=== PATIENT | male | born 1950 ===

== ENCOUNTER 2023-08-21 17:21 | Inpatient (IN) | payer MEDICARE ==
[2023-08-21] MEDS ORDERED: HYDROcodone/Acetaminophen 5/325 mg Tablet PO PRN (18:19)
[2023-08-21] MEDS ORDERED: Acetaminophen 325 MG TAB PO PRN (18:19)
[2023-08-21] MEDS ORDERED: Ondansetron ODT 4 MG TAB PO PRN (18:19)
[2023-08-21] MEDS ORDERED: Acetaminophen 650 MG Suppository PR PRN (18:19)
[2023-08-21] MEDS ORDERED: Ondansetron PF 4 MG/2 ML Vial IVP PRN (18:19)
[2023-08-21] MEDS ORDERED: Morphine 4 MG/ML VIAL SLOW IVP SCH (18:30)
[2023-08-21] MEDS ORDERED: Cyclobenzaprine 10 MG TAB PO SCH (18:30)
[2023-08-21] MEDS ORDERED: Sodium Chloride 0.9% 1,000 ML IV SCH (18:30)
[2023-08-21] MEDS ORDERED: Naloxone HCl 0.4 mg/ml Vial IV PRN (18:39)
[2023-08-21] MEDS ORDERED: Morphine 2 MG/ML VIAL SLOW IVP SCH (18:45)
[2023-08-21 18:49] LABS: #Monocytes 1.1 thou/uL (0.11-0.59); #Neutrophils 12.3 thou/uL (1.40-6.50); %Basophils 0.1 % (0.0-1.0); %Monocytes 7.5 % (0.0-10.0); %Neutrophils 84.8 % (42.0-75.0); Hematocrit 31.9 % (42.0-52.0); Hemoglobin 10.6 g/dL (14.0-18.0); Mean Corpuscular HGB CONC 33.2 g/dL (32.0-36.0); Mean Corpuscular Hemoglobin 34.8 pg (27.0-31.0); Mean Corpuscular Volume 104.6 fl (78.0-98.0); Mean Platelet Volume 9.2 fL (7.4-10.4); Platelet Count 196 10x3/uL (130-400); RBC Distribution Width 12.4 % (11.5-14.5); Red Blood Cell (RBC) Count 3.05 mill/uL (4.70-6.10); White Blood Cell (WBC) Count 14.5 10x3/uL (4.8-10.8)
[2023-08-21] MEDS ORDERED: Morphine 2 MG/ML VIAL SLOW IVP PRN (19:11)
[2023-08-21 19:20] LABS: ALT (SGPT) 12 U/L (8-55); AST (SGOT) 23 U/L (5-34); Albumin 3.5 g/dL (3.4-4.8); Alcohol Less than 10.0 mg/dL (Less than 10); Alkaline Phosphatase 68 U/L (40-110); Anion Gap 18 mmol/L (10-20); BUN (Urea Nitrogen) 29 mg/dL (8.4-25.7); Bilirubin, Total 0.7 mg/dL (0.2-1.2); Calc. Creatinine Clearance 0 mL/min (70-130); Calcium 8.8 mg/dL (7.8-10.44); Carbon Dioxide 20 mmol/L (23-31); Chloride 99 mmol/L (98-107); Estimated GFR 72; Globulin 3.3 g/dL (2.4-3.5); Glucose 115 mg/dL (83-110); Magnesium 1.9 mg/dL (1.6-2.6); Potassium 3.9 mmol/L (3.5-5.1); Protein, Total 6.8 g/dL (5.8-8.1); Sodium 133 mmol/L (136-145)
[2023-08-21] MEDS: Bisacodyl 5 MG TAB PO SCH (20:24)
[2023-08-21] MEDS: Sertraline 25 MG TAB PO SCH (20:24)
[2023-08-21] MEDS: Famotidine 20 MG TAB PO SCH (20:25)
[2023-08-21] MEDS: Morphine ER 15 MG TAB PO SCH (21:56)
[2023-08-21 22:04] LABS: Lactic Acid 1.9 mmol/L (0.5-2.2)
[2023-08-21 23:13] VITALS: BMI 26.6
[2023-08-22 00:16] LABS: Bacteria/HPF None Seen HPF (None Seen); Bilirubin Negative (Negative); Blood, Urine Negative (Negative); CAUTI Indications for Culture Pelvic or flank pain; Clarity Clear (Clear); Glucose, Urine (Dipstick) Normal (Negative); Ketone, Urine Negative (Negative); Leukocyte Negative Leu/uL (Negative); Nitrite Negative (Negative); Protein, Urine (Dipstick) Negative (Neg-Trace); RBC/HPF 0-3 HPF (0-3); Specific Gravity, Urine 1.012 (1.002-1.036); Squamous Epithelial None Seen HPF (0-3); Urobilinogen Normal mg/dL (Less than 2); WBC/HPF 0-3 HPF (0-3)
[2023-08-22 00:21] LABS: Urine Culture Reflex No No
[2023-08-22] MEDS ORDERED: Sodium Chloride 0.9% 500 ML IV SCH ×2 (02:15→03:00)
[2023-08-22 06:18] LABS: #Eosinphils 0.1 thou/uL (0.0-0.7); #Monocytes 0.7 thou/uL (0.11-0.59); #Neutrophils 4.9 thou/uL (1.40-6.50); %Basophils 0.1 % (0.0-1.0); %Lymphocytes 26.1 % (21.0-51.0); %Monocytes 9.3 % (0.0-10.0); %Neutrophils 63.4 % (42.0-75.0); Hematocrit 32.9 % (42.0-52.0); Mean Corpuscular HGB CONC 33.4 g/dL (32.0-36.0); Mean Corpuscular Hemoglobin 34.6 pg (27.0-31.0); Mean Corpuscular Volume 103.5 fl (78.0-98.0); Mean Platelet Volume 9.3 fL (7.4-10.4); Platelet Count 204 10x3/uL (130-400); RBC Distribution Width 12.4 % (11.5-14.5); Red Blood Cell (RBC) Count 3.18 mill/uL (4.70-6.10); White Blood Cell (WBC) Count 7.7 10x3/uL (4.8-10.8)
[2023-08-22 06:47] LABS: Anion Gap 18 mmol/L (10-20); BUN (Urea Nitrogen) 20 mg/dL (8.4-25.7); Calc. Creatinine Clearance 85 mL/min (70-130); Calcium 8.8 mg/dL (7.8-10.44); Carbon Dioxide 22 mmol/L (23-31); Chloride 104 mmol/L (98-107); Estimated GFR 92; Glucose 98 mg/dL (83-110); Potassium 3.7 mmol/L (3.5-5.1); Sodium 140 mmol/L (136-145)
[2023-08-22] MEDS: Naloxegol 12.5 MG TAB PO SCH (08:07)
[2023-08-22] MEDS: Polyethylene Glycol 3350 17 GM Packet PO SCH ×2 (08:07→22:02)
[2023-08-22] MEDS: Bisacodyl 5 MG TAB PO SCH ×2 (08:07→22:02)
[2023-08-22] MEDS: Cyanocobalamin (Vitamin B-12) 1,000 MCG TAB PO SCH (08:08)
[2023-08-22] MEDS: Famotidine 20 MG TAB PO SCH ×2 (08:08→22:05)
[2023-08-22] MEDS: Morphine ER 15 MG TAB PO SCH ×2 (08:08→22:00)
[2023-08-22] MEDS: Calcium Carbonate 600 MG + Vit D TAB PO SCH (08:08)
[2023-08-22] MEDS ORDERED: Dexamethasone 10 MG/ML VIAL SLOW IVP SCH (09:45)
[2023-08-22] MEDS ORDERED: Dexamethasone 10 MG in Sodium Chloride 0.9% 50 ML IVPB SCH (09:45)
[2023-08-22] MEDS: Sodium Chloride 0.9% 1,000 ML IV SCH (12:08)
[2023-08-22] MEDS ORDERED: HYDROcodone/Acetaminophen 10/325 mg Tablet PO PRN (14:16)
[2023-08-22] MEDS: HYDROcodone/Acetaminophen 10/325 mg Tablet PO PRN (14:30)
[2023-08-22] MEDS: Calcitonin,Salmon,Synthetic 200 Units NASAL PUMP 3.7 ML L NARE SCH (17:22)
[2023-08-22] MEDS: Sertraline 25 MG TAB PO SCH (22:01)
[2023-08-23] MEDS: HYDROcodone/Acetaminophen 10/325 mg Tablet PO PRN ×3 (00:23→20:20)
[2023-08-23] MEDS: Sodium Chloride 0.9% 1,000 ML IV SCH ×2 (00:25→14:50)
[2023-08-23] MEDS: Naloxegol 12.5 MG TAB PO SCH (07:29)
[2023-08-23] MEDS ORDERED: Morphine 2 MG/ML VIAL SLOW IVP PRN (08:00)
[2023-08-23] MEDS ORDERED: Fentanyl 100 MCG/2 ML VIAL SLOW IVP SCH (08:00)
[2023-08-23] MEDS ORDERED: fentaNYL 50 mcg/mL 1 mL Vial SLOW IVP SCH (08:30)
[2023-08-23] MEDS: Calcium Carbonate 600 MG + Vit D TAB PO SCH (08:37)
[2023-08-23] MEDS: Cyanocobalamin (Vitamin B-12) 1,000 MCG TAB PO SCH (08:37)
[2023-08-23] MEDS: Bisacodyl 5 MG TAB PO SCH ×2 (08:37→22:01)
[2023-08-23] MEDS: Famotidine 20 MG TAB PO SCH ×2 (08:37→20:22)
[2023-08-23] MEDS: Polyethylene Glycol 3350 17 GM Packet PO SCH ×2 (08:38→20:32)
[2023-08-23] MEDS: Morphine ER 15 MG TAB PO SCH ×2 (09:43→21:18)
[2023-08-23] MEDS: Morphine 4 MG/ML VIAL SLOW IVP PRN ×3 (12:16→23:28)
[2023-08-23] MEDS ORDERED: Dexamethasone 4 mg/ml Vial SLOW IVP SCH (14:30)
[2023-08-23] MEDS ORDERED: CEFAZOLIN 2 GM in Sodium Chloride 0.9% 100 ML IVPB SCH (15:45)
[2023-08-23] MEDS: Calcitonin,Salmon,Synthetic 200 Units NASAL PUMP 3.7 ML R NARE SCH (18:10)
[2023-08-23] MEDS: Sertraline 25 MG TAB PO SCH (20:21)
[2023-08-23] MEDS: Senokot S 8.6-50 MG TAB PO SCH (20:22)
[2023-08-23] MEDS: Dexamethasone 4 mg/ml Vial SLOW IVP SCH (21:19)
[2023-08-24] MEDS: HYDROcodone/Acetaminophen 10/325 mg Tablet PO PRN ×2 (00:40→20:56)
[2023-08-24] MEDS: Sodium Chloride 0.9% 1,000 ML IV SCH ×2 (04:11→21:02)
[2023-08-24 05:32] LABS: #Monocytes 0.7 thou/uL (0.11-0.59); #Neutrophils 6.5 thou/uL (1.40-6.50); %Basophils 0.1 % (0.0-1.0); %Lymphocytes 11.3 % (21.0-51.0); %Neutrophils 79.2 % (42.0-75.0); Hematocrit 27.8 % (42.0-52.0); Hemoglobin 9.4 g/dL (14.0-18.0); Mean Corpuscular HGB CONC 33.8 g/dL (32.0-36.0); Mean Corpuscular Hemoglobin 34.6 pg (27.0-31.0); Mean Corpuscular Volume 102.2 fl (78.0-98.0); Mean Platelet Volume 9.4 fL (7.4-10.4); Platelet Count 191 10x3/uL (130-400); Red Blood Cell (RBC) Count 2.72 mill/uL (4.70-6.10); White Blood Cell (WBC) Count 8.2 10x3/uL (4.8-10.8)
[2023-08-24] MEDS: Dexamethasone 4 mg/ml Vial SLOW IVP SCH ×3 (05:51→20:58)
[2023-08-24 06:00] LABS: ALT (SGPT) 13 U/L (8-55); AST (SGOT) 22 U/L (5-34); Albumin 3.1 g/dL (3.4-4.8); Alkaline Phosphatase 65 U/L (40-110); Anion Gap 11 mmol/L (10-20); BUN (Urea Nitrogen) 12 mg/dL (8.4-25.7); Bilirubin, Total 0.4 mg/dL (0.2-1.2); Calc. Creatinine Clearance 98 mL/min (70-130); Calcium 8.6 mg/dL (7.8-10.44); Carbon Dioxide 24 mmol/L (23-31); Chloride 103 mmol/L (98-107); Estimated GFR 96; Globulin 2.7 g/dL (2.4-3.5); Glucose 141 mg/dL (83-110); Potassium 4.1 mmol/L (3.5-5.1); Protein, Total 5.8 g/dL (5.8-8.1); Sodium 134 mmol/L (136-145)
[2023-08-24] MEDS ORDERED: Ondansetron PF 4 MG/2 ML Vial ONE ×2 (08:50→09:41)
[2023-08-24] MEDS ORDERED: PROPOFOL 20 ML ONE (08:50)
[2023-08-24] MEDS ORDERED: Sodium Chloride 0.9% 100 ML ONE (08:53)
[2023-08-24] MEDS ORDERED: CEFAZOLIN 2 GM VIAL ONE (08:53)
[2023-08-24] MEDS ORDERED: ePHEDrine Sulfate 50 MG/10 ML VIAL ONE (09:41)
[2023-08-24] MEDS ORDERED: PROPOFOL 200 MG/20 ML VIAL ONE (09:41)
[2023-08-24] MEDS ORDERED: fentaNYL PF 100 MCG/2 ML SYRINGE ONE (09:50)
[2023-08-24] MEDS ORDERED: fentaNYL 50 mcg/mL 1 mL Vial ONE ×3 (09:54→11:40)
[2023-08-24] MEDS: Thiamine 100 MG TAB PO SCH (10:28)
[2023-08-24] MEDS: Polyethylene Glycol 3350 17 GM Packet PO SCH ×2 (10:28→20:56)
[2023-08-24] MEDS: Famotidine 20 MG TAB PO SCH ×2 (10:28→20:57)
[2023-08-24] MEDS: Senokot S 8.6-50 MG TAB PO SCH ×2 (10:28→20:58)
[2023-08-24] MEDS: Naloxegol 12.5 MG TAB PO SCH (10:29)
[2023-08-24] MEDS: Bisacodyl 5 MG TAB PO SCH ×2 (10:29→20:55)
[2023-08-24] MEDS: Cyanocobalamin (Vitamin B-12) 1,000 MCG TAB PO SCH (10:29)
[2023-08-24] MEDS ORDERED: Promethazine HCl 25 MG/ML VIAL IM PRN (11:02)
[2023-08-24] MEDS ORDERED: Ondansetron HCl/PF 4 MG/2 ML Vial IVP PRN (11:02)
[2023-08-24] MEDS ORDERED: HYDROmorphone 2 MG/ML VIAL SLOW IVP PRN (11:02)
[2023-08-24] MEDS: Morphine ER 15 MG TAB PO SCH ×2 (12:59→20:55)
[2023-08-24] MEDS: CEFAZOLIN 2 GM in Sodium Chloride 0.9% 100 ML IVPB SCH (16:39)
[2023-08-24] MEDS: Calcitonin,Salmon,Synthetic 200 Units NASAL PUMP 3.7 ML R NARE SCH (16:40)
[2023-08-24] MEDS: Calcitonin,Salmon,Synthetic 200 Units NASAL PUMP 3.7 ML L NARE SCH (18:34)
[2023-08-24] MEDS: Sertraline 25 MG TAB PO SCH (20:57)
[2023-08-25] MEDS: CEFAZOLIN 2 GM in Sodium Chloride 0.9% 100 ML IVPB SCH (01:15)
[2023-08-25 05:16] LABS: #Monocytes 0.8 thou/uL (0.11-0.59); #Neutrophils 6.7 thou/uL (1.40-6.50); %Basophils 0.1 % (0.0-1.0); %Eosinophils 0.1 % (0.0-10.0); %Lymphocytes 13.6 % (21.0-51.0); %Monocytes 9.5 % (0.0-10.0); %Neutrophils 76.4 % (42.0-75.0); Hematocrit 23.5 % (42.0-52.0); Hemoglobin 8.1 g/dL (14.0-18.0); Mean Corpuscular HGB CONC 34.5 g/dL (32.0-36.0); Mean Corpuscular Hemoglobin 35.7 pg (27.0-31.0); Mean Corpuscular Volume 103.5 fl (78.0-98.0); Mean Platelet Volume 9.6 fL (7.4-10.4); Platelet Count 181 10x3/uL (130-400); RBC Distribution Width 12.1 % (11.5-14.5); Red Blood Cell (RBC) Count 2.27 mill/uL (4.70-6.10); White Blood Cell (WBC) Count 8.8 10x3/uL (4.8-10.8)
[2023-08-25 05:42] LABS: ALT (SGPT) 13 U/L (8-55); AST (SGOT) 24 U/L (5-34); Albumin 2.7 g/dL (3.4-4.8); Alkaline Phosphatase 56 U/L (40-110); Anion Gap 13 mmol/L (10-20); BUN (Urea Nitrogen) 13 mg/dL (8.4-25.7); Bilirubin, Total 0.4 mg/dL (0.2-1.2); Calc. Creatinine Clearance 88 mL/min (70-130); Carbon Dioxide 24 mmol/L (23-31); Chloride 104 mmol/L (98-107); Estimated GFR 93; Globulin 2.6 g/dL (2.4-3.5); Glucose 137 mg/dL (83-110); Potassium 4.2 mmol/L (3.5-5.1); Protein, Total 5.3 g/dL (5.8-8.1); Sodium 137 mmol/L (136-145)
[2023-08-25] MEDS: Dexamethasone 4 mg/ml Vial SLOW IVP SCH ×3 (05:46→21:24)
[2023-08-25] MEDS: Famotidine 20 MG TAB PO SCH ×2 (08:09→21:25)
[2023-08-25] MEDS: Polyethylene Glycol 3350 17 GM Packet PO SCH ×3 (08:09→21:23)
[2023-08-25] MEDS: Senokot S 8.6-50 MG TAB PO SCH ×2 (08:10→21:25)
[2023-08-25] MEDS: Bisacodyl 5 MG TAB PO SCH ×2 (08:10→21:25)
[2023-08-25] MEDS: Thiamine 100 MG TAB PO SCH (08:10)
[2023-08-25] MEDS: Cyanocobalamin (Vitamin B-12) 1,000 MCG TAB PO SCH (08:10)
[2023-08-25] MEDS: Morphine ER 15 MG TAB PO SCH ×2 (08:10→21:25)
[2023-08-25] MEDS: Naloxegol 12.5 MG TAB PO SCH (08:16)
[2023-08-25] MEDS: Sodium Chloride 0.9% 1,000 ML IV SCH ×2 (09:20→13:34)
[2023-08-25] MEDS: Sertraline 25 MG TAB PO SCH (21:25)
[2023-08-26] MEDS: Dexamethasone 4 mg/ml Vial SLOW IVP SCH ×2 (05:37→09:27)
[2023-08-26 05:48] LABS: #Neutrophils 8.7 thou/uL (1.40-6.50); %Basophils 0.1 % (0.0-1.0); %Lymphocytes 12.8 % (21.0-51.0); %Monocytes 8.7 % (0.0-10.0); Hematocrit 25.7 % (42.0-52.0); Hemoglobin 8.8 g/dL (14.0-18.0); Mean Corpuscular HGB CONC 34.2 g/dL (32.0-36.0); Mean Corpuscular Hemoglobin 34.8 pg (27.0-31.0); Mean Corpuscular Volume 101.6 fl (78.0-98.0); Mean Platelet Volume 9.6 fL (7.4-10.4); Platelet Count 214 10x3/uL (130-400); RBC Distribution Width 11.9 % (11.5-14.5); Red Blood Cell (RBC) Count 2.53 mill/uL (4.70-6.10); White Blood Cell (WBC) Count 11.1 10x3/uL (4.8-10.8)
[2023-08-26 06:19] LABS: ALT (SGPT) 15 U/L (8-55); AST (SGOT) 23 U/L (5-34); Albumin 2.8 g/dL (3.4-4.8); Alkaline Phosphatase 60 U/L (40-110); Anion Gap 14 mmol/L (10-20); BUN (Urea Nitrogen) 14 mg/dL (8.4-25.7); Bilirubin, Total 0.6 mg/dL (0.2-1.2); Calc. Creatinine Clearance 103 mL/min (70-130); Calcium 8.3 mg/dL (7.8-10.44); Carbon Dioxide 23 mmol/L (23-31); Chloride 104 mmol/L (98-107); Estimated GFR 97; Globulin 2.8 g/dL (2.4-3.5); Glucose 124 mg/dL (83-110); Potassium 4.2 mmol/L (3.5-5.1); Protein, Total 5.6 g/dL (5.8-8.1); Sodium 137 mmol/L (136-145)
[2023-08-26] MEDS: Morphine ER 15 MG TAB PO SCH ×2 (09:25→20:46)
[2023-08-26] MEDS: Bisacodyl 5 MG TAB PO SCH ×2 (09:26→20:47)
[2023-08-26] MEDS: Folic Acid 1 MG TAB PO SCH (09:26)
[2023-08-26] MEDS: Naloxegol 12.5 MG TAB PO SCH (09:26)
[2023-08-26] MEDS: Thiamine 100 MG TAB PO SCH (09:26)
[2023-08-26] MEDS: Famotidine 20 MG TAB PO SCH ×2 (09:26→20:47)
[2023-08-26] MEDS: Cyanocobalamin (Vitamin B-12) 1,000 MCG TAB PO SCH (09:26)
[2023-08-26] MEDS: Senokot S 8.6-50 MG TAB PO SCH ×2 (09:27→20:47)
[2023-08-26] MEDS: Polyethylene Glycol 3350 17 GM Packet PO SCH ×2 (09:27→20:47)
[2023-08-26] MEDS: HYDROcodone/Acetaminophen 10/325 mg Tablet PO PRN (16:53)
[2023-08-26] MEDS: Calcitonin,Salmon,Synthetic 200 Units NASAL PUMP 3.7 ML L NARE SCH (19:17)
[2023-08-26] MEDS: Sertraline 25 MG TAB PO SCH (20:47)
[2023-08-27] MEDS: Naloxegol 12.5 MG TAB PO SCH (08:58)
[2023-08-27] MEDS: Famotidine 20 MG TAB PO SCH ×2 (08:58→21:28)
[2023-08-27] MEDS: Cyanocobalamin (Vitamin B-12) 1,000 MCG TAB PO SCH (08:58)
[2023-08-27] MEDS: Folic Acid 1 MG TAB PO SCH (08:59)
[2023-08-27] MEDS: Morphine ER 15 MG TAB PO SCH ×2 (08:59→21:47)
[2023-08-27] MEDS: Bisacodyl 5 MG TAB PO SCH ×2 (08:59→21:28)
[2023-08-27] MEDS: Dexamethasone 4 mg/ml Vial SLOW IVP SCH (08:59)
[2023-08-27] MEDS: Thiamine 100 MG TAB PO SCH (08:59)
[2023-08-27] MEDS: Senokot S 8.6-50 MG TAB PO SCH ×2 (09:00→21:28)
[2023-08-27] MEDS: Polyethylene Glycol 3350 17 GM Packet PO SCH ×2 (09:00→21:28)
[2023-08-27] MEDS: Calcitonin,Salmon,Synthetic 200 Units NASAL PUMP 3.7 ML R NARE SCH (16:42)
[2023-08-27] MEDS: HYDROcodone/Acetaminophen 10/325 mg Tablet PO PRN (16:51)
[2023-08-27] MEDS: Sertraline 25 MG TAB PO SCH (21:28)
[2023-08-28] MEDS: Naloxegol 12.5 MG TAB PO SCH (10:24)
[2023-08-28] MEDS: Polyethylene Glycol 3350 17 GM Packet PO SCH ×2 (10:27→20:39)
[2023-08-28] MEDS: Bisacodyl 5 MG TAB PO SCH ×2 (10:27→20:39)
[2023-08-28] MEDS: Senokot S 8.6-50 MG TAB PO SCH ×2 (10:27→20:37)
[2023-08-28] MEDS: Folic Acid 1 MG TAB PO SCH (10:29)
[2023-08-28] MEDS: Cyanocobalamin (Vitamin B-12) 1,000 MCG TAB PO SCH (10:30)
[2023-08-28] MEDS: Famotidine 20 MG TAB PO SCH ×2 (10:30→20:37)
[2023-08-28] MEDS: Dexamethasone 4 mg/ml Vial SLOW IVP SCH (10:30)
[2023-08-28] MEDS: Thiamine 100 MG TAB PO SCH (10:30)
[2023-08-28] MEDS: Morphine ER 15 MG TAB PO SCH ×2 (12:06→20:37)
[2023-08-28] MEDS: HYDROcodone/Acetaminophen 10/325 mg Tablet PO PRN ×2 (13:12→17:16)
[2023-08-28] MEDS: Calcitonin,Salmon,Synthetic 200 Units NASAL PUMP 3.7 ML L NARE SCH (19:28)
[2023-08-28] MEDS: Sertraline 25 MG TAB PO SCH (20:37)
[2023-08-29] MEDS: Cyanocobalamin (Vitamin B-12) 1,000 MCG TAB PO SCH (08:27)
[2023-08-29] MEDS: Thiamine 100 MG TAB PO SCH (08:27)
[2023-08-29] MEDS: Senokot S 8.6-50 MG TAB PO SCH (08:27)
[2023-08-29] MEDS: Dexamethasone 4 mg/ml Vial SLOW IVP SCH (08:27)
[2023-08-29] MEDS: Naloxegol 12.5 MG TAB PO SCH (08:28)
[2023-08-29] MEDS: Morphine ER 15 MG TAB PO SCH (08:30)
[2023-08-29] MEDS: Bisacodyl 5 MG TAB PO SCH (08:37)
[2023-08-29] MEDS: Polyethylene Glycol 3350 17 GM Packet PO SCH (08:44)
[2023-08-29] MEDS: Folic Acid 1 MG TAB PO SCH (10:53)
[2023-08-29 14:11] VITALS: BP 98/66; TEMP 98.3
== END 2023-08-29 14:57 | DRG 481 ==
LOC: SURG B 17:21
PROVIDERS: ADMIT Internal Medicine; ATTEND Internal Medicine
PROC: 0QS706Z Reposition Left Upper Femur with Intramedullary Internal Fixation Device, Open Approach (ICD-10-PCS; principal; 2023-08-24)
DX: M84.552A Pathological fracture in neoplastic disease, left femur, initial encounter for fracture (principal); C79.51 Secondary malignant neoplasm of bone; F32.A Depression, unspecified; I10 Essential (primary) hypertension; I95.9 Hypotension, unspecified; E78.5 Hyperlipidemia, unspecified; K59.03 Drug induced constipation; C61 Malignant neoplasm of prostate; E78.00 Pure hypercholesterolemia, unspecified; D63.0 Anemia in neoplastic disease; Z79.899 Other long term (current) drug therapy; Z86.73 Personal history of transient ischemic attack (TIA), and cerebral infarction without residual deficits
CPT/HCPCS: 36415; 72146; 80048; 80053; 80307; 81001; 82607; 83605; 83735; 85025; C1713; J1100; J1650; J2270; J2272; J2405; J2704; J3010; J3490; J7030; J7050